=== PATIENT | female | born 1970 | race Hispanic/Latino ===

== ENCOUNTER 2018-01-29 06:21 | Day surgery (SDC) | payer MEDICAID ==
[~2018-01-29 06:21] MED LIST: SODIUM CHLORIDE 0.9% 1000ML 1,000 ML IV ONE
[2018-01-29 06:29] VITALS: BP 124/83
[2018-01-29] MEDS ORDERED: SENN8.6T8 PO (07:16)
[2018-01-29] MEDS ORDERED: ALEN70TA47 PO (07:16)
[2018-01-29] MEDS ORDERED: ESOM40CA54 PO (07:16)
[2018-01-29] MEDS ORDERED: LOSA25TA16 PO (07:16)
[2018-01-29] MEDS ORDERED: LETR2.5T6 PO (07:16)
[2018-01-29] MEDS ORDERED: PROPOFOL 10 MG/ML 20ML VIAL IV ONE (07:43)
[2018-01-29 07:54] VITALS: BP 91/56
[2018-01-29 07:56] VITALS: BP 88/53
[2018-01-29 08:01] VITALS: BP 93/58
[2018-01-29 08:06] VITALS: BP 97/59
[2018-01-29 08:11] VITALS: BP 106/76
== END 2018-01-29 08:33 | disposition home or self-care (01) ==
LOC: DAH 06:21
PROVIDERS: ATTEND Internal Medicine Gastroenterology
DX: K29.50 Unspecified chronic gastritis without bleeding (principal); K31.89 Other diseases of stomach and duodenum; I10 Essential (primary) hypertension; E78.2 Mixed hyperlipidemia; Z90.49 Acquired absence of other specified parts of digestive tract; Z90.710 Acquired absence of both cervix and uterus; Z98.890 Other specified postprocedural states; Z85.3 Personal history of malignant neoplasm of breast; Z79.899 Other long term (current) drug therapy
CPT/HCPCS: 43239; 88305; A4606; J2704; J7030

== ENCOUNTER → 2021-12-22 | Outpatient (CLI) | payer MEDICAID ==
[~2021-12-22] MED LIST changes: +ALEN70TA80 PO; +ESOM40CA54 PO; +LETR2.5T7 PO; +LOSA25TA41 PO; +SENN8.6T8 PO; -SODIUM CHLORIDE 0.9% 1000ML 1,000 ML IV ONE
== END | disposition home or self-care (01) ==
LOC: RAH 09:44
PROVIDERS: ATTEND Physical Medicine & Rehabilitation
DX: M47.812 Spondylosis without myelopathy or radiculopathy, cervical region (principal); M54.2 Cervicalgia
CPT/HCPCS: 72050

== ENCOUNTER → 2023-05-30 | Outpatient (CLI) | payer MEDICAID ==
[2023-05-30 14:15] LABS: CREATININE 0.6 mg/dL (0.5-1.5)
== END | disposition home or self-care (01) ==
LOC: LAB 13:12
PROVIDERS: ATTEND Internal Medicine Gastroenterology
DX: R10.11 Right upper quadrant pain (principal)
CPT/HCPCS: 36415; 82565; 84520

== ENCOUNTER → 2023-06-25 | Outpatient (CLI) | payer MEDICAID ==
[~2023-06-25] MED LIST changes: +IOHEXOL 350 MG/ML 100ML INFUS..BTL IV ONE
== END | disposition home or self-care (01) ==
LOC: RAH 09:42
PROVIDERS: ATTEND Internal Medicine Gastroenterology
DX: R10.11 Right upper quadrant pain (principal); Z90.49 Acquired absence of other specified parts of digestive tract
CPT/HCPCS: 74177; Q9967